=== PATIENT | male | born 1950 | race Caucasian/White ===

== ENCOUNTER → 2020-02-08 | Outpatient (CLI) | payer OTHER | END | disposition home or self-care (01) | LOC: OIH 08:14 | PROVIDERS: ATTEND Internal Medicine | DX: M19.042 Primary osteoarthritis, left hand (principal); M19.041 Primary osteoarthritis, right hand; M19.032 Primary osteoarthritis, left wrist; M19.031 Primary osteoarthritis, right wrist; M25.742 Osteophyte, left hand; M25.741 Osteophyte, right hand | CPT/HCPCS: 73110; 73130 ==

== ENCOUNTER → 2020-12-20 | Outpatient (CLI) | payer OTHER | END | disposition home or self-care (01) | LOC: OIH 10:36 | PROVIDERS: ATTEND Family Medicine | DX: M25.561 Pain in right knee (principal); I70.209 Unspecified atherosclerosis of native arteries of extremities, unspecified extremity; Z96.651 Presence of right artificial knee joint | CPT/HCPCS: 73562 ==

== ENCOUNTER → 2022-04-18 | Outpatient (CLI) | payer OTHER | END | disposition home or self-care (01) | LOC: RAH 12:52 | PROVIDERS: ATTEND Family Medicine | DX: I36.1 Nonrheumatic tricuspid (valve) insufficiency (principal); I11.9 Hypertensive heart disease without heart failure; I31.3 Pericardial effusion (noninflammatory); J44.9 Chronic obstructive pulmonary disease, unspecified; F17.200 Nicotine dependence, unspecified, uncomplicated; E66.9 Obesity, unspecified; E78.5 Hyperlipidemia, unspecified | CPT/HCPCS: 93306 ==

== ENCOUNTER 2022-04-20 10:10 | Observation (INO) | payer OTHER ==
[~2022-04-20] VITALS: Ht 162.6 cm; Wt 112.0 kg
[2022-04-20 10:32] LABS: BASOPHILS % (AUTO) 0.7 % (0.0-5.0); EOSINOPHILS % (AUTO) 1.3 % (0.0-8.0); HEMATOCRIT 45.4 % (42-54); LYMPHOCYTES % (AUTO) 20.1 % (21.0-51.0); MEAN CORPUSCULAR HEMOGLOBIN 32.2 pg (27.0-33.0); MEAN CORPUSCULAR HGB CONC 33.7 g/dL (32.0-36.0); MEAN CORPUSCULAR VOLUME 95.6 fL (79-99); MONOCYTES % (AUTO) 4.9 % (3.0-13.0); NEUTROPHILS % (AUTO) 72.6 % (40.0-77.0); PLATELET COUNT (AUTO) 163 K/uL (130-400); RED BLOOD CELL COUNT(AUTO) 4.75 MIL/uL (4.50-6.20); RED CELL DISTRIBUTION WIDTH 14.6 % (11.0-15.5); WHITE BLOOD COUNT (AUTO) 11.2 K/uL (4.8-10.8)
[2022-04-20 10:40] LABS: CREATININE 1.5 mg/dL (0.5-1.5); POTASSIUM 5.3 mmol/L (3.5-5.1)
[2022-04-20 10:45] LABS: ALBUMIN 3.8 g/dL (3.5-5.0); TOTAL PROTEIN, SERUM 7.2 g/dL (6.0-8.3)
[2022-04-20] MEDS ORDERED: 0.9%NACL 1000ML 1,000 ML IV SCH (12:00)
[2022-04-20] MEDS ORDERED: IOHEXOL 350 MG/ML 100ML INFUS..BTL IV ONE (12:06)
[2022-04-20] MEDS ORDERED: ENOXAPARIN SODIUM 120 MG/0.8ML SQ SCH (13:00)
[2022-04-20] MEDS ORDERED: KAYEXALATE 15GM/60ML PO PRN (13:30)
[2022-04-20] MEDS ORDERED: LACTULOSE 20 GM/30 ML UDCUP PO PRN (13:30)
[2022-04-20] MEDS ORDERED: ALBUTEROL INHALER 90MCG/INH IH PRN (13:30)
[2022-04-20] MEDS ORDERED: LABETALOL 20MG SYG IV PRN (13:30)
[2022-04-20] MEDS ORDERED: ONDANSETRON 4MG INJ IVP PRN (13:30)
[2022-04-20] MEDS ORDERED: HYDRALAZINE 20MG/ML VIAL IV PRN (13:30)
[2022-04-20 13:53] LABS: APPEARANCE,URINE CLEAR (CLEAR); BILIRUBIN,URINE NEGATIVE (NEGATIVE); COLOR,URINE YELLOW (YELLOW); GLUCOSE, URINE (UA) NEGATIVE (NEGATIVE); KETONES,URINE NEGATIVE (NEGATIVE); LEUKOCYTE ESTERASE ,URINE NEGATIVE (NEGATIVE); NITRATE,URINE NEGATIVE (NEGATIVE); OCCULT BLOOD,URINE NEGATIVE (NEGATIVE); PH,URINE 5.5 (5.0-8.0); PROTEIN,URINE 30 mg/dL (NEGATIVE); UROBILINOGEN,URINE 0.2 mg/dL (0.2-1.0)
[2022-04-20 14:01] LABS: BACTERIA,URINE Rare /HPF (None Seen); RBC,URINE 0-1 /HPF (0-1); WBC,URINE 0-1 /HPF (0-1)
[2022-04-20 14:02] LABS: SQUAMOUS EPITHELIAL CELL,UR 0-2 /HPF (0-2)
[2022-04-20 15:45] VITALS: BP 146/102
[2022-04-20] MEDS: INSULIN HUMULIN R 100 UNIT/ML 3ML SQ SCH ×2 (16:30→21:00)
[2022-04-20] MEDS ORDERED: NA ZIRCON CYCLOSIL(LOKELMA 10GM) PO SCH (16:30)
[2022-04-20] MEDS: 1/2 NS 1000ML 1,000 ML IV SCH (16:48)
[2022-04-20 18:25] LABS: AMPHET/METH SCREEN,URINE NEGATIVE (NEGATIVE); BARBITURATE SCREEN, URINE NEGATIVE (NEGATIVE); BENZODIAZEPINES SCREEN,URINE NEGATIVE (NEGATIVE); CANNABINOID SCREEN,URINE NEGATIVE (NEGATIVE); COCAINE SCREEN,URINE NEGATIVE (NEGATIVE); PHENCYCLIDINE SCREEN,URINE NEGATIVE (NEGATIVE)
[2022-04-20 20:21] VITALS: BP 139/101
[2022-04-20] MEDS: ENOXAPARIN SODIUM 120 MG/0.8ML SQ SCH (21:30)
[2022-04-20] MEDS: ACETAMINOPHEN 325 MG TAB PO PRN (23:21)
[2022-04-20 23:45] VITALS: BP 134/88
[2022-04-21] VITALS (7 sets, daily range): BP systolic 113–148; BP diastolic 55–91
[2022-04-21] MEDS: 1/2 NS 1000ML 1,000 ML IV SCH ×3 (01:48→23:15)
[2022-04-21 04:02] LABS: BASOPHILS % (AUTO) 0.6 % (0.0-5.0); EOSINOPHILS % (AUTO) 1.4 % (0.0-8.0); HEMATOCRIT 40.4 % (42-54); LYMPHOCYTES % (AUTO) 18.6 % (21.0-51.0); MEAN CORPUSCULAR HEMOGLOBIN 31.7 pg (27.0-33.0); MEAN CORPUSCULAR HGB CONC 33.2 g/dL (32.0-36.0); MEAN CORPUSCULAR VOLUME 95.5 fL (79-99); MONOCYTES % (AUTO) 9.3 % (3.0-13.0); NEUTROPHILS % (AUTO) 69.9 % (40.0-77.0); PLATELET COUNT (AUTO) 148 K/uL (130-400); RED BLOOD CELL COUNT(AUTO) 4.23 MIL/uL (4.50-6.20); RED CELL DISTRIBUTION WIDTH 14.6 % (11.0-15.5); WHITE BLOOD COUNT (AUTO) 8.8 K/uL (4.8-10.8)
[2022-04-21 04:33] LABS: CREATININE 1.1 mg/dL (0.5-1.5); PHOSPHORUS 3.6 mg/dL (2.5-4.9); POTASSIUM 4.1 mmol/L (3.5-5.1); THYROID STIMULATING HORMONE 1.01 uIU/mL (0.36-3.74)
[2022-04-21 04:50] LABS: B-TYPE NATRIURETIC PEPTIDE 457 pg/mL (0-100)
[2022-04-21] MEDS: INSULIN HUMULIN R 100 UNIT/ML 3ML SQ SCH ×4 (06:35→21:00)
[2022-04-21] MEDS ORDERED: PANTOPRAZOLE 40 MG/VIAL IVP SCH (09:00)
[2022-04-21] MEDS ORDERED: POLYETHYLENE GLYCOL 3350 17 GM POWD.PACK PO SCH (09:00)
[2022-04-21] MEDS: ENOXAPARIN SODIUM 120 MG/0.8ML SQ SCH ×2 (09:38→20:03)
[2022-04-21] MEDS: ACETAMINOPHEN 325 MG TAB PO PRN (17:02)
[2022-04-23 15:13] LABS: OPIATES SCREEN URINE Negative ng/mL (Cutoff=300)
== END 2022-04-22 01:52 | disposition short-term general hospital (02) ==
LOC: EDH 10:10 → EDHIP 13:12 → 2DH 15:41 → 3AH 16:12 → 2DH 16:26
PROVIDERS: ADMIT Internal Medicine Critical Care Medicine; ATTEND Internal Medicine Critical Care Medicine
DX: I26.99 Other pulmonary embolism without acute cor pulmonale (principal); Z20.822 Contact with and (suspected) exposure to COVID-19; J96.01 Acute respiratory failure with hypoxia; I11.0 Hypertensive heart disease with heart failure; I50.31 Acute diastolic (congestive) heart failure; I25.10 Atherosclerotic heart disease of native coronary artery without angina pectoris; I25.2 Old myocardial infarction; D72.829 Elevated white blood cell count, unspecified; E87.5 Hyperkalemia; E78.5 Hyperlipidemia, unspecified; E66.01 Morbid (severe) obesity due to excess calories; R42 Dizziness and giddiness; Z79.899 Other long term (current) drug therapy; Z98.890 Other specified postprocedural states; Z68.41 Body mass index [BMI] 40.0-44.9, adult; W19.XXXA Unspecified fall, initial encounter; Y92.89 Other specified places as the place of occurrence of the external cause; Y93.89 Activity, other specified; Y99.8 Other external cause status
CPT/HCPCS: 93306 ×2; 96372 ×2; 96361 ×3; 99285; 84484; 80053; 83880 ×2; 80305; 85025 ×2; 85378; 87804 ×2; 82948 ×6; 85300; 85306; 81001; 36415 ×2; 87635; 71045; 70450; 71275; 93970; 93005; 96374; 84443; 83735; 84100; 80048; 84145; J1650 ×5; G0378 ×37; C9803; Q9967; C9113; 85302

== ENCOUNTER → 2023-02-12 | Outpatient (CLI) | payer OTHER | END | disposition home or self-care (01) | LOC: OIH 10:08 | PROVIDERS: ATTEND Family Medicine | DX: M19.072 Primary osteoarthritis, left ankle and foot (principal); M79.672 Pain in left foot | CPT/HCPCS: 73630 ==

== ENCOUNTER → 2024-03-28 | Outpatient (CLI) | payer OTHER | END | disposition home or self-care (01) | LOC: SHCH 12:42 | PROVIDERS: ATTEND Internal Medicine Cardiovascular Disease | DX: I25.10 Atherosclerotic heart disease of native coronary artery without angina pectoris (principal); Z95.5 Presence of coronary angioplasty implant and graft | CPT/HCPCS: 93306 ==

== ENCOUNTER → 2024-04-21 | Outpatient (CLI) | payer OTHER | END | disposition home or self-care (01) | LOC: RAH 07:50 | PROVIDERS: ATTEND Family Medicine | DX: M19.011 Primary osteoarthritis, right shoulder (principal); M25.511 Pain in right shoulder | CPT/HCPCS: 73030 ==

== ENCOUNTER → 2024-10-25 | Outpatient (CLI) | payer OTHER, MEDICARE ==
[2024-10-25] MEDS: REGADENOSON 0.4 MG/5 ML PF SYG IVP ONE (14:41)
--- NOTE | 2024-10-26 08:24 | HMCSR ---
APPROVED REPORT Height: 5 ft 4in Weight: 264 lbs TEST INDICATIONS CAD The imaging protocol used to acquire images was Rest Tc-99m/stress Tc-99m 1 day Consent: The procedure was explained and understood by the patient. Informerd consent was witnessed Shaneka BLANCHARD RN First, low dose rest was performed then high dose stress. RESTING DATA: The resting ekg shows: NSR Rest SPECT myocardial perfusion imaging was performed in supine position 59 minutes following the int ravenous injection of 11.2 mCi of Tc-99 Sestamibi. Time of rest injection: 08:10: Date: 10/25/2024 Time of rest imagin:09: Date: 10/25/2024 PHARMACOLOGIC STRESS: Pharmacologic stress test was performed by injecting regadenoson 0.4 mg IV push followed by the intra venous injection of 32.0 mCi of Tc-99 Sestamibi. Time of stress injection: 09:33: Date: 10/25/2024 Time of stress imagin:23: Date: 10/25/2024 Heart Rate at time of stress injection: 71 bpm. Gated Stress SPECT was performed 110 minutes after stress injection. The images were gated to evaluate regional wall motion and calculate left ventricular ejection fracti on. STRESS DETAILS Reason for Termination: Infusion complete Stress Symptoms: Dyspnea Max HR Achieved: 86 bpm % of APMHR Achieved: 65 Max Blood Pressure: 175/89 mmHg Stress ECG: NSR Study quality was good. Lung uptake was Normal. Artifact: motion artifact LEFT VENTRICLE Size: The left ventricular size is normal. Systolic Function:The left ventricular systolic function is borderline. Wall Motion: Cannot assess regional wall motion abnormalities. The left ventricular ejection fraction was calculated to be 49%.TID = . LV PERFUSION There is decreased radiotracer uptake noted of severe degree involving the inferior wall present on b oth the rest and stress images consistent with a fixed defect. This is of moderate size. There is decreased radiotracer uptake noted of mild degree more prominent on the stress images compar ed to the rest images noted in the lateral wall consistent with a ischemic defect. This is of modera te size Conclusion Abnormal myocardial perfusion scan. 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
== END | disposition home or self-care (01) ==
LOC: SHCH 07:48
PROVIDERS: ATTEND Internal Medicine Cardiovascular Disease
DX: I21.19 ST elevation (STEMI) myocardial infarction involving other coronary artery of inferior wall (principal); I25.10 Atherosclerotic heart disease of native coronary artery without angina pectoris; I25.5 Ischemic cardiomyopathy; R06.00 Dyspnea, unspecified; R94.39 Abnormal result of other cardiovascular function study
CPT/HCPCS: 78452; 93017; J2785; A9500 ×2

== ENCOUNTER 2024-12-29 10:22 | Day surgery (SDC) | payer OTHER, MEDICARE ==
[2024-12-27 08:42] LABS: BASOPHILS # (AUTO) 0.05 K/uL (0.00-0.20); BASOPHILS % (AUTO) 0.7 % (0.0-5.0); EOSINOPHILS # (AUTO) 0.14 K/uL (0.00-0.70); EOSINOPHILS % (AUTO) 2.1 % (0.0-8.0); HEMATOCRIT 44.4 % (42-54); IMMATURE GRANULOCYTE ABSOLUTE 0.02 K/uL (0-1); LYMPHOCYTES # (AUTO) 1.5 K/uL (1.0-4.8); LYMPHOCYTES % (AUTO) 22.6 % (21.0-51.0); MEAN CORPUSCULAR HEMOGLOBIN 31.7 pg (27.0-33.0); MEAN CORPUSCULAR HGB CONC 32.9 g/dL (32.0-36.0); MEAN CORPUSCULAR VOLUME 96.5 fL (79-99); MONOCYTES # (AUTO) 0.7 K/uL (0.1-1.0); MONOCYTES % (AUTO) 10.3 % (3.0-13.0); NEUTROPHILS # (AUTO) 4.3 K/uL (1.8-7.7); PLATELET COUNT (AUTO) 162 K/uL (130-400); RED CELL DISTRIBUTION WIDTH 14.1 % (11.0-15.5); WHITE BLOOD COUNT (AUTO) 6.7 K/uL (4.8-10.8)
[2024-12-27 08:49] LABS: APPEARANCE,URINE CLEAR (CLEAR); BILIRUBIN,URINE NEGATIVE (NEGATIVE); COLOR,URINE LIGHT-YELLOW (YELLOW); GLUCOSE, URINE (UA) NEGATIVE (NEGATIVE); KETONES,URINE NEGATIVE (NEGATIVE); LEUKOCYTE ESTERASE ,URINE NEGATIVE Leu/uL (NEGATIVE); NITRATE,URINE NEGATIVE (NEGATIVE); OCCULT BLOOD,URINE NEGATIVE (NEGATIVE); PROTEIN,URINE NEGATIVE (NEGATIVE); UROBILINOGEN,URINE 0.2 mg/dL (0.2-1.0)
[2024-12-27 08:55] LABS: CREATININE 0.9 mg/dL (0.5-1.3); POTASSIUM 4.4 mmol/L (3.5-5.1)
[2024-12-27 08:56] LABS: INR 1.02 (0.85-1.15); PROTHROMBIN TIME 10.8 SEC (9.6-11.6)
[2024-12-27 08:58] LABS: PARTIAL THROMBOPLASTIN TIME 27.1 SEC (26.3-35.5)
[2024-12-27 08:58] LABS: ADD UA MICROSCOPIC NO
[2024-12-27 09:08] LABS: B-TYPE NATRIURETIC PEPTIDE 65 pg/mL (0-100)
[2024-12-27 09:22] VITALS: BP 174/90; PULSE 70; RESP 16; TEMP 98.1
--- NOTE | 2024-12-27 09:30 | HMCIMG ---
PORTABLE CHEST RADIOGRAPH INDICATION: PRE OP COMPARISON: 04/20/2022 CTA chest FINDINGS: Heart size is normal. The pulmonary vascularity and vargas appear normal. No abnormal pulmonary parenchymal opacity or consolidation identified. No significant pleural effusion noted. No pneumothorax detected. IMPRESSION: No radiographic evidence for any acute cardiopulmonary process.
--- NOTE | 2024-12-27 09:32 | EKG ---
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
[~2024-12-29] VITALS: Ht 162.6 cm; Wt 119.1 kg
[2024-12-29] VITALS (8 sets, daily range): BP systolic 128–181; BP diastolic 69–95; PULSE 61–78; RESP 10–18; TEMP 97.6–97.9
[~2024-12-29 10:22] MED LIST: APIX2.5T PO; IBUP1TAB71 PO; METF-444 PO; OLME20TA68 PO; ROSU10TA72 PO; SACU1TAB PO
[2024-12-29] MEDS: 0.9%NACL 1000ML 1,000 ML IV SCH (11:20)
[2024-12-29] MEDS ORDERED: LIDOCAINE HCL 400MG/20ML VIAL ONE (16:22)
[2024-12-29] MEDS ORDERED: HEParin-NS 1,000 UNIT/500 ML 1,000 ML IV ONE (16:23)
[2024-12-29] MEDS ORDERED: IOHEXOL 350 MG/ML 100ML INFUS..BTL IV ONE (16:23)
[2024-12-29] MEDS ORDERED: NITROGLYCERIN 50MG VIAL ONE (16:23)
[2024-12-29] MEDS ORDERED: FENTanyl CITRate PF 50 MCG/1 ML 2ML VIAL ONE (16:37)
[2024-12-29] MEDS ORDERED: MIDAZOLAM HCL 1 MG/ML 2ML VIAL ONE (16:37)
[2024-12-29] MEDS ORDERED: IOHEXOL-350 50ML VIAL IV ONE (16:49)
[2024-12-29] MEDS ORDERED: LAbetaLOL 20MG SYG IV ONE (17:16)
[2024-12-29] MEDS ORDERED: 0.9%NACL 1000ML 1,000 ML IV SCH (18:00)
[2024-12-29] MEDS ORDERED: DEXTROSE 50%-WATER 50 ML DISP.SYRIN IV PRN (18:00)
--- NOTE | 2024-12-29 18:08 | PRN ---
DATE OF PROCEDURE: 12/29/2024 PROCEDURE PERFORMED: LEFT HEART CATHETERIZATION, LEFT VENTRICULOGRAM, LEFT AND RIGHT SELECTIVE CORONARY ANGIOGRAM, RIGHT COMMON FEMORAL ANGIOGRAM, AND PERCLOSE SUTURE CLOSURE OF THE RIGHT COMMON FEMORAL ARTERY CLINICAL PHARMACIST: EVELYN MARINO MD, [facility] INDICATION: ABNORMAL LEXISCAN CARDIOLITE STRESS TEST WITH FIXED INFERIOR DEFECT AND MILD LATERAL WALL ISCHEMIA 10/25/2024 WITH GATED EF OF 49%. PROCEDURE NOTE: After informed consent was obtained the patient was prepped and draped in the usual sterile fashion. A 6 American arterial sheath was inserted in the right femoral artery using a MICROPUNCTURE TECHNIQUE WITH ULTRASOUND GUIDANCE WITH with a front wall, first pass puncture. This was performed after fluoroscopic identification of bony landmarks to facilitate a more accurate puncture of the right common femoral artery. The arterial sheath was aspirated and flushed. A 6 American pigtail catheter was then advanced over a J-tipped guidewire to the ascending aorta and was prolapsed into the left ventricle. The catheter was aspirated and flushed and pressure measurements were obtained. A left ventriculogram was then performed in a 30 IVEY projection. A pullback procedure was then performed, and this catheter was removed over a J-tipped guidewire. A 6F JL-4 was then advanced to the ascending aorta over a J-tipped guidewire, was aspirated and flushed, and was used for selective left coronary angiograms in multiple obliquities. A JR-4 was advanced in a similar fashion to the ascending aorta over a J-tipped guidewire and was used for selective right coronary angiograms in multiple obliquities with findings as outlined below. A right common femoral angiogram was performed to assess suitability for Perclose suture closure and the Perclose device was deployed in standard fashion. Perclose suture closure was successful without bleeding or hematoma. The patient tolerated the procedure well and was returned to the holding area in stable condition. FINDINGS: LEFT HEART HEMODYNAMICS: The patient's LVEDP was 36 mm of mercury prior to the LV-gram and 20 mm of mercury after the LV-gram. There was aortic valve gradient on pullback procedure. LEFT VENTRICULOGRAM: The patient had moderate inferior hypokinesis with an LVEF estimate of 45%. There was no angiographic MR. CORONARY ANGIOGRAM: LEFT MAIN: The left main had a 30% ostial stenosis without dampening or ventricularization of the pressure waveform. LEFT ANTERIOR DESCENDING: There was moderate calcification of the proximal and mid LAD. The mid-LAD had two tandem 40% stenoses and after the 2nd diagonal was a 50% mid LAD stenosis. The apical LAD was normal. The 1st diagonal was normal and small. The 2nd diagonal had a 40% ostial stenosis. LEFT CIRCUMFLEX: The left circumflex was nondominant and terminated after a large trifurcating OM2 vessel. The left circumflex had a 30% proximal stenosis. The mid and distal circumflex were normal. The OM1 was small with a 70% proximal stenosis. The OM2 was moderate and had a 75% mid stenosis followed by a 50% stenosis in the distal OM2. RAMUS INTERMEDIATE BRANCH: There was no ramus intermediate branch. RIGHT CORONARY ARTERY: The right coronary artery was large and dominant and had four stents from prior remote intervention in 2014, presumably in the setting of an inferior wall [place]. the proximal RCA had a 40% in stent restenosis. Two overlapping mid RCA stents had 50% and 40% tandem stenoses in stent restenosis. The distal RCA stent had wide patency and was normal. The PDA had a 40% and 40% tandem proximal stenoses and a 50% mid stenosis. The posterolateral branch was small and normal. IMPRESSION: Mild ischemic cardiomyopathy with LVEF of 45% with inferior wall moderate hypokinesis. There was no angiographic MR abnormal Lexiscan Cardiolite stress test 10/25/2024 demonstrating a fixed inferior defect with mild lateral wall ischemia and a gated EF of 49%. Asymptomatic for angina pectoris. Diastolic dysfunction with LVEDP of 36 mm of mercury. Moderate inferior hypokinesis with LVEF of 45%. No angiographic MR. Moderate three-vessel coronary artery disease: Four patent stents in the proximal to distal RCA from remote intervention in 2014 with 40% ISR in the proximal stent, 50% and 40% ISR in the two overlapping mid RCA stents, and wide patency in the distal RCA stent. Two tandem 40% mid LAD stenosis and a 50% mid to distal LAD stenosis 70% OM1 stenosis in a small OM1 vessel. 75% mid to distal OM2 stenosis. RECOMMENDATION: Aggressive risk factor modification. Add ezetimibe 10 mg daily to current rosuvastatin, targeting LDL less than 55. Add SGLT2 inhibitor and diuretic to medical regimen given diastolic CHF. Add clopidogrel to Eliquis anticoagulation. COMPLICATIONS OF PROCEDURE: None, the patient tolerated the procedure well and was returned to his room in stable condition. HEMOSTASIS: Perclose suture closure was successful without bleeding or hematoma. ESTIMATED BLOOD LOSS: Less than 10 mL. CONTRAST TOTAL: 125 mL. EVELYN MARINO MD Dec 29, 2024 18:08
[2024-12-29] MEDS ORDERED: INSULIN humuLIN R 100 UNIT/ML 3ML SQ SCH (21:00)
== END 2024-12-29 20:30 | disposition home or self-care (01) ==
LOC: DAH 10:22
PROVIDERS: ATTEND Internal Medicine Cardiovascular Disease
DX: R94.39 Abnormal result of other cardiovascular function study (principal); I25.118 Atherosclerotic heart disease of native coronary artery with other forms of angina pectoris; T82.855A Stenosis of coronary artery stent, initial encounter; I25.5 Ischemic cardiomyopathy; R93.1 Abnormal findings on diagnostic imaging of heart and coronary circulation; I10 Essential (primary) hypertension; E78.5 Hyperlipidemia, unspecified; E66.01 Morbid (severe) obesity due to excess calories; Z98.42 Cataract extraction status, left eye; Z98.41 Cataract extraction status, right eye; Z68.41 Body mass index [BMI] 40.0-44.9, adult; Z79.84 Long term (current) use of oral hypoglycemic drugs; Z79.899 Other long term (current) drug therapy; Y71.2 Prosthetic and other implants, materials and accessory cardiovascular devices associated with adverse incidents
CPT/HCPCS: 80048; 83880; 85025; 85610; 85730; 81003; 36415; 71045; 93005; 93458; 82948 ×2; C1894 ×3; C1760; J3010; J3490 ×2; J2250; J1644; Q9967 ×2; A4215; A4222; A4221; A4663; A4216; A4606; Q9965 ×2; A4223 ×3; 99156; 99157